=== PATIENT | female | born 1950 | race Caucasian/White ===

== ENCOUNTER → 2021-07-02 | Outpatient (CLI) | payer BC, MEDICARE ==
[~2021-07-02] MED LIST: ALEVE220 MG PO; ALLEGRA ALLERG180 MG PO; ASPIRIN EC81 MG PO; ELIQUIS 2.5 MG2.5 MG PO; HYDROCHLOROTH12.5 MG PO; MOBIC15 MG PO; NORCO 5-325 TA1 EACH PO; SINGULAIR10 MG PO; WOMEN'S 50 PLU1 EACH PO; XARELTO10 MG PO
[2021-07-02 12:39] LABS: HEMOGLOBIN 14.5 gm/dl (12.3-15.3); RED BLOOD COUNT 3.86 M/UL (4.00-5.10); WHITE BLOOD COUNT 11.2 K/UL (4.5-11.0)
[2021-07-02 13:01] LABS: BUN/CREATININE RATIO 20 (0-10)
== END ==
LOC: EDSTATUS 10:30 → OPSV2 10:30
PROVIDERS: Orthopaedic Surgery
DX: Z01.818 Encounter for other preprocedural examination (principal); M17.11 Unilateral primary osteoarthritis, right knee
CPT/HCPCS: 71046; 80048; 85025; 93005